=== PATIENT | female | born 1990 | race African-American/Black ===

== ENCOUNTER 2016-05-29 06:00 | Emergency (ER) | payer OTHER ==
--- NOTE | 2016-05-29 06:50 | REPUSA ---
CLINICAL HISTORY: Vaginal bleeding. TECHNIQUE: Transabdominal ultrasound of the pelvis was performed. FINDINGS: Single, live intrauterine gestation. [place]-rump length measures 7.2 cm. This corresponds to an estimated gestation age of 13 weeks and 3 d ays. heart rate 157 beats per minutes. Estimated gestational age is 13 weeks and 3 days. heart rate 157 beats per minute. motion was observed. No subchorionic hemorrhage is visualized. Anterior placenta. No evidence of placental previa. Unremarkable maternal adnexal lesions. Estimated delivery date on 12/01/2016. Calcified posterior uterine fibroid measuring 2.2 cm. IMPRESSION: Single, live intrauterine gestation. Posterior fibroid.
[2016-05-29 07:10] LABS: MEAN CORPUSCULAR HEMOGLOBIN 28.7 pg (27.0-33.0); MEAN CORPUSCULAR HGB CONC 32.7 g/dl (32.0-36.5); MEAN CORPUSCULAR VOLUME 87.8 fl (80.0-96.0); WHITE BLOOD COUNT 6.2 K/mm3 (4.0-10.0)
--- NOTE | 2016-05-29 07:57 | EDDOCDS ---
Physician Documentation [facility] Name: Melissa Registre Age: 26 yrs Sex: Female : 1990 Arrival Date: 05/29/2016 Time: 06:00 Bed 9 Private MD: Disposition: 05/29/16 07:39 Discharged to Home/Self Care. Impression: Threatened . - Condition is Stable. - Discharge Instructions: Pelvic Rest, Threatened Miscarriage. - Medication Reconciliation, Local Pharmacy Hours form. - Follow up: [facility] [place]; When: 1 - 2 days; Reason: Recheck today's complaints. - Problem is new. - Symptoms are unchanged. Historical: - Allergies: No known drug Allergies; - Home Meds: 1. Vitamin Oral tab 1 tab once daily - PMHx: none; - PSHx: ; Oophorectomy - Left; - Social history: Smoking status: Patient states was never smoker of tobacco. No barriers to communication noted, The patient speaks fluent Arabic. - Family history: Not pertinent. - : The pt / caregiver states he / she is not on anticoagulants. Home medication list is obtained from the patient. - Exposure Risk Screening:: None identified. 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 2 in. (157.48 cm); Pain 5/10; 06:52 BP 103 / 58 Supine; Pulse 80; ko2 06:52 BP 96 / 56 Sitting; Pulse 77; ko2 06:52 BP 103 / 65 Standing; Pulse 76; ko2 07:12 BP 100 / 53; Pulse 74; Resp 13; Temp 98.5(O); Pulse Ox 99% on R/A; Pain 5/10; ja5 06:06 Body Mass Index 27.07 (67.13 kg, 157.48 cm) [facility] MDM: 06:15 Orthostatic VS ordered. cs11 06:16 Rh Only Ordered. EDMS 06:17 CBC Ordered. EDMS 06:17 Hcg, Serum Quantitative Ordered. EDMS 06:17 Ultrasound 1st Trimester Ordered. EDMS 06:47 Financial registration complete. pm4 06:55 [facility] Payment Agreement was scanned into [employer] and attached to record. pm4 07:39 CBC Reviewed. sd1 07:39 Rh Only Reviewed. sd1 07:39 Hcg, Serum Quantitative Reviewed. sd1 07:39 Ultrasound 1st Trimester Reviewed. sd1 Signatures: Dispatcher [employer] EDNV Blanca Gil MD MD sd1 Nima Nolasco, DO cs11 Lillian Payne,RN RN [facility] Philippe Bañuelos, Reg Reg pm4 Tracie Aceves RN RN ja5 The chart was reviewed and I authenticate all verbal orders and agree with the evaluation and treatment provided.Attachments: 06:55 [facility] Payment Agreement pm4 MTDD
--- NOTE | 2016-05-29 07:57 | EDDOCDS ---
Nurse's Notes [facility] Name: Melissa Registre Age: 26 yrs Sex: Female : 1990 Arrival Date: 05/29/2016 Time: 06:00 Bed 9 Private MD: Diagnosis: Threatened Presentation: 05/29 06:04 Presenting complaint: Patient states: pt states she woke up and there was blood in her mlc underwear. pt denies bleeding at this time. pt c/o abdominal pain. Risk factors: The patient reports no loss of conciousness prior to arrival. This patient has not had a hysterectomy. This patient has not begun menopause. Adult Sepsis Screening: The patient does not have new or worsening altered mentation. Patient's respiratory rate is less than 22. Systolic blood pressure is greater than 100. Patient has a qSOFA score of 0- Negative Sepsis Screen. Suicide/Homicide risk assessment- the patient denies having any suicidal and/or homicidal ideations and does not present with any other emotional, behavioral or mental health complaints. 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 Transition of care: patient was not received from another setting of care. 06:04 Acuity: SAAD Level 3 mlc 06:04 Method Of Arrival: Walkin/Carried/Asstd mlc Triage Assessment: 06:06 General: Appears in no apparent distress, comfortable, Behavior is cooperative. Pain: mlc Location: suprapubic area, right lower quadrant and left lower quadrant Pain currently is 5 out of 10 on a pain scale. Pt Declines HIV testing. The patient is triaged at the bedside. See Assessment in Nurses Notes section of ED record. Neurological: Level of Consciousness is awake, alert, Oriented to person, place, time. Respiratory: Airway is patent Respiratory effort is even, unlabored, Respiratory pattern is regular. : Reports vaginal bleeding that is none at this time. 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 Vitamin Oral tab 1 tab once daily - PMHx: none; - PSHx: ; Oophorectomy - Left; - Social history: Smoking status: Patient states was never smoker of tobacco. No barriers to communication noted, The patient speaks fluent Latvian. - Family history: Not pertinent. - : The pt / caregiver states he / she is not on anticoagulants. Home medication list is obtained from the patient. - Exposure Risk Screening:: None identified. Screenin:11 Screening information is obtained from the patient. Fall risk: No risks identified. mlc Assistance ADL's: requires no assistance with activities of daily living. Abuse/DV Screen: The patient / caregiver reports he/she is: not in a situation that causes fear, pain or injury. Nutritional screening: No deficits noted. Advance Directives: Currently, there is no health care proxy. There is an active Power of Cafeteria Counter Attendant. home support is adequate. Assessment: 06:15 General: Appears in no apparent distress, Behavior is appropriate for age, cooperative. ko2 Pain: Location: abdomen Pain currently is 5 out of 10 on a pain scale. Neurological: Level of Consciousness is awake, alert. Respiratory: Airway is patent Respiratory effort is even, unlabored. GI: Abdomen is non- distended Bowel sounds present X 4 quads. Derm: Skin is normal. 07:13 General: Appears in no apparent distress, Behavior is appropriate for age, cooperative. ja5 Pain: Location: right lower quadrant and left lower quadrant Pain currently is 5 out of 10 on a pain scale. Neurological: Level of Consciousness is awake, alert, Oriented to person, place, time. Cardiovascular: Heart tones S1 S2 present. Respiratory: Airway is patent Respiratory effort is even, unlabored. GI: Abdomen is flat, non- distended Bowel sounds present X 4 quads. Derm: Skin is pink, warm & dry. Vital Signs: 06:06 BP 108 / 61; Pulse 75; Resp 16; Temp 96.6; Pulse Ox 100% ; Weight 67.13 kg; Height 5 mlc ft. 2 in. (157.48 cm); Pain 5/10; 06:52 BP 103 / 58 Supine; Pulse 80; ko2 06:52 BP 96 / 56 Sitting; Pulse 77; ko2 06:52 BP 103 / 65 Standing; Pulse 76; ko2 07:12 BP 100 / 53; Pulse 74; Resp 13; Temp 98.5(O); Pulse Ox 99% on R/A; Pain 5/10; ja5 06:06 Body Mass Index 27.07 (67.13 kg, 157.48 cm) [facility] Vitals: 06:06 Log In Time: May 29, 2016 at 06:02. [facility] ED Course: 06:02 Patient visited by Jody Thacker Reg. hs2 06:02 Patient moved to Waiting hs2 06:06 Triage Initiated mlc 06:12 Patient visited by Lillian Payne RN. mlc 06:13 Christie Toledo,QUOC is Primary Nurse. mlc 06:13 Patient moved to 9 [facility] 06:14 Nima Nolasco DO is Attending Physician. cs11 06:14 Patient visited by Nima Nolasco DO. cs11 06:41 CBC Sent. nn1 06:41 Rh Only Sent. nn1 06:41 Hcg, Serum Quantitative Sent. nn1 06:41 Inserted saline lock: 20 gauge in left antecubital area and blood collected. The nn1 patient tolerated the procedure well. 06:52 Patient visited by Christie Toledo RN. ko2 06:55 Patient name changed from Melissa\S\\S\Registre\S\ to Melissa\S\ \S\Registre. EDMS 06:55 [facility] Payment Agreement was scanned into [employer] and attached to record. pm4 06:57 Attending Physician role handed off by Nima Nolasco DO sd1 06:57 Blanca Gil MD is Attending Physician. sd1 07:07 Maryjo Parks, QUOC is Primary Nurse. jc4 07:09 Tracie Aceves,QUOC is Primary Nurse. ja5 07:15 Ultrasound 1st Trimester Returned. EDMS 07:16 Patient visited by Tracie Aceves RN. ja5 07:18 Primary Nurse role handed off by Christie Toledo RN kr3 07:39 [place], OB is Referral Physician. sd1 07:50 The patient / caregiver is instructed regarding the plan of care and ED course. ja5 07:53 No procedures done that require assistance. ja5 07:55 Discontinued IV lock intact, bleeding controlled, pressure dressing applied, No ja5 redness/swelling at site. Order Results: Lab Order: CBC; SPEC'M 05/29/16 06:40 Test: WHITE BLOOD COUNT; Value: 6.2; Range: 4.0-10.0; Units: K/mm3; Status: F Test: RED BLOOD COUNT; Value: 3.88; Range: 4.00-5.40; Abnormal: Below low normal; Units: M/mm3; Status: F Test: HEMOGLOBIN; Value: 11.1; Range: 12.0-16.0; Abnormal: Below low normal; Units: g/dl; Status: F Test: HEMATOCRIT; Value: 34.0; Range: 36.0-47.0; Abnormal: Below low normal; Units: %; Status: F Test: MEAN CORPUSCULAR VOLUME; Value: 87.8; Range: 80.0-96.0; Units: fl; Status: F Test: MEAN CORPUSCULAR HEMOGLOBIN; Value: 28.7; Range: 27.0-33.0; Units: pg; Status: F Test: MEAN CORPUSCULAR HGB CONC; Value: 32.7; Range: 32.0-36.5; Units: g/dl; Status: F Test: RED CELL DISTRIBUTION WIDTH; Value: 14.0; Range: 11.5-14.5; Units: %; Status: F Test: PLATELET COUNT, AUTOMATED; Value: 229; Range: 150-450; Units: k/mm3; Status: F Lab Order: Rh Only; [facility] 05/29/16 06:40 Test: RH; Value: POSITIVE; Status: F Lab Order: Hcg, Serum Quantitative; [facility] 05/29/16 06:40 Test: HCG, SERUM QUANTITATIVE; Value: 21125; Units: MIU/ML; Status: F Test Note: ; GESTATIONAL AGE APPROXIMATE HCG RANGE (MIU/ML) 0.2-1 WEEK 5-50 1-2 WEEKS 50-500 2-3 WEEKS 100-5,000 3-4 WEEKS 500-10,000 4-5 WEEKS 1,000-50,000 5-6 WEEKS 10,000-100,000 6-8 WEEKS 15,000-200,000 2-3 MONTHS 10,000-100,000 NON FEMALES LESS THAN 3.0 Patient samples may contain human heterophilic antibodies that could react with immunoassays to give falsely elevated or depressed results. This assay has been designed to minimize interference from heterophilic antibodies. Elevated hCG levels have also been associated with trophoblastic disease and nontrophoblastic neoplasms. The possibility of having these diseases should be considered before a diagnosis of is made. This test is not intended for use as a surrogate marker for aiding in the diagnosis or monitoring the treatment of cancer patients. [employer] FERTILE [employer]AR[employer]S methodology. Radiology Order: Ultrasound 1st Trimester Test: Ultrasound 1st Trimester REASON FOR EXAMINATION: Bleeding; ; CLINICAL HISTORY: Vaginal bleeding.; TECHNIQUE: Transabdominal ultrasound of the pelvis was performed.; FINDINGS:; Single, live intrauterine gestation.; [place]-rump length measures 7.2 cm. This corresponds to an estimated gestation age of 13 weeks and 3 d; ays.; heart rate 157 beats per minutes.; Estimated gestational age is 13 weeks and 3 days.; heart rate 157 beats per minute.; motion was observed.; No subchorionic hemorrhage is visualized.; Anterior placenta.; No evidence of placental previa.; Unremarkable maternal adnexal lesions.; Estimated delivery date on 12/01/2016.; Calcified posterior uterine fibroid measuring 2.2 cm.; IMPRESSION:; Single, live intrauterine gestation.; Posterior fibroid.; ; Outcome: 07:39 Discharge ordered by Provider. sd1 07:54 Discharge Assessment: Patient awake, alert and oriented x 3. No cognitive and/or ja5 functional deficits noted. Patient verbalized understanding of disposition instructions. patient administered narcotics - no. The following High Risk Discharge criteria are identified: None. Discharged to home ambulatory. Condition: stable. Discharge instructions given to patient, Instructed on discharge instructions, follow up and referral plans. Demonstrated understanding of instructions, Pt was receptive of discharge instructions/ teaching. Ultrasound Study completed. Property :Personal belongings accompany Pt. 07:56 Patient left the ED. ja5 Signatures: Dispatcher [employer] EDMS Blanca Gil MD MD sd1 Madelyn Glass,RN RN reed3 Maryjo Parks, RN RN nestor4 Nima Nolasco, DO cs11 Lillian Payne RN RN mlc Christie Toledo RN RN ko2 Eleni Woo RN RN nn1 Jody Thacker, Reg Reg hs2 Philippe Bañuelos, Reg Reg pm4 Ketan,Tracie,RN RN ja5 MTDD
--- NOTE | 2016-05-31 08:57 | EDDOCDS ---
Physician Documentation [facility] Name: Melissa Registre Age: 26 yrs Sex: Female : 1990 Arrival Date: 05/29/2016 Time: 06:00 Bed 9 Private MD: Disposition: 05/29/16 07:39 Discharged to Home/Self Care. Impression: Threatened . - Condition is Stable. - Discharge Instructions: Pelvic Rest, Threatened Miscarriage. - Medication Reconciliation, Local Pharmacy Hours form. - Follow up: [facility] [place]; When: 1 - 2 days; Reason: Recheck today's complaints. - Problem is new. - Symptoms are unchanged. Historical: - Allergies: No known drug Allergies; - Home Meds: 1. Vitamin Oral tab 1 tab once daily - PMHx: none; - PSHx: ; Oophorectomy - Left; - Social history: Smoking status: Patient states was never smoker of tobacco. No barriers to communication noted, The patient speaks fluent Greek. - Family history: Not pertinent. - : The pt / caregiver states he / she is not on anticoagulants. Home medication list is obtained from the patient. - Exposure Risk Screening:: None identified. 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 2 in. (157.48 cm); Pain 5/10; 06:52 BP 103 / 58 Supine; Pulse 80; ko2 06:52 BP 96 / 56 Sitting; Pulse 77; ko2 06:52 BP 103 / 65 Standing; Pulse 76; ko2 07:12 BP 100 / 53; Pulse 74; Resp 13; Temp 98.5(O); Pulse Ox 99% on R/A; Pain 5/10; ja5 06:06 Body Mass Index 27.07 (67.13 kg, 157.48 cm) [facility] [place] [place] MDM: 06:15 Orthostatic VS ordered. cs11 06:16 Rh Only Ordered. EDMS 06:17 CBC Ordered. EDMS 06:17 Hcg, Serum Quantitative Ordered. EDMS 06:17 Ultrasound 1st Trimester Ordered. EDMS 06:47 Financial registration complete. pm4 06:55 [facility] Payment Agreement was scanned into [employer] and attached to record. pm4 07:39 CBC Reviewed. sd1 07:39 Rh Only Reviewed. sd1 07:39 Hcg, Serum Quantitative Reviewed. sd1 07:39 Ultrasound 1st Trimester Reviewed. sd1 13:32 T-Sheet-- Draft Copy was scanned into [employer] and attached to record. gb 13:32 Radiology Report was scanned into [employer] and attached to record. gb Signatures: Dispatcher [employer] EDNJ Blanca Gil MD MD sd1 Poonam Murray, Reg Reg gb Nima Nolasco, DO DO cs11 Lillian Payne,RN RN [facility] [place] Philippe Bañuelos, Reg Reg pm4 Tracie Aceves RN RN sharifa5 The chart was reviewed and I authenticate all verbal orders and agree with the evaluation and treatment provided.Attachments: 06:55 [facility] Payment Agreement pm4 13:32 T-Sheet-- Draft Copy gb Chart Complete MTDD
--- NOTE | 2016-05-31 08:57 | EDDOCDS ---
Nurse's Notes [facility] Name: Melissa Registre Age: 26 yrs Sex: Female : 1990 Arrival Date: 05/29/2016 Time: 06:00 Bed 9 Private MD: Diagnosis: Threatened Presentation: 05/29 06:04 Presenting complaint: Patient states: pt states she woke up and there was blood in her mlc underwear. pt denies bleeding at this time. pt c/o abdominal pain. Risk factors: The patient reports no loss of conciousness prior to arrival. This patient has not had a hysterectomy. This patient has not begun menopause. Adult Sepsis Screening: The patient does not have new or worsening altered mentation. Patient's respiratory rate is less than 22. Systolic blood pressure is greater than 100. Patient has a qSOFA score of 0- Negative Sepsis Screen. Suicide/Homicide risk assessment- the patient denies having any suicidal and/or homicidal ideations and does not present with any other emotional, behavioral or mental health complaints. 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 Transition of care: patient was not received from another setting of care. 06:04 Acuity: SAAD Level 3 mlc 06:04 Method Of Arrival: Walkin/Carried/Asstd mlc Triage Assessment: 06:06 General: Appears in no apparent distress, comfortable, Behavior is cooperative. Pain: mlc Location: suprapubic area, right lower quadrant and left lower quadrant Pain currently is 5 out of 10 on a pain scale. Pt Declines HIV testing. The patient is triaged at the bedside. See Assessment in Nurses Notes section of ED record. Neurological: Level of Consciousness is awake, alert, Oriented to person, place, time. Respiratory: Airway is patent Respiratory effort is even, unlabored, Respiratory pattern is regular. : Reports vaginal bleeding that is none at this time. 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 Vitamin Oral tab 1 tab once daily - PMHx: none; - PSHx: ; Oophorectomy - Left; - Social history: Smoking status: Patient states was never smoker of tobacco. No barriers to communication noted, The patient speaks fluent Divehi. - Family history: Not pertinent. - : The pt / caregiver states he / she is not on anticoagulants. Home medication list is obtained from the patient. - Exposure Risk Screening:: None identified. Screenin:11 Screening information is obtained from the patient. Fall risk: No risks identified. mlc Assistance ADL's: requires no assistance with activities of daily living. Abuse/DV Screen: The patient / caregiver reports he/she is: not in a situation that causes fear, pain or injury. Nutritional screening: No deficits noted. Advance Directives: Currently, there is no health care proxy. 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 home support is adequate. Assessment: 06:15 General: Appears in no apparent distress, Behavior is appropriate for age, cooperative. ko2 Pain: Location: abdomen Pain currently is 5 out of 10 on a pain scale. Neurological: Level of Consciousness is awake, alert. Respiratory: Airway is patent Respiratory effort is even, unlabored. GI: Abdomen is non- distended Bowel sounds present X 4 quads. Derm: Skin is normal. 07:13 General: Appears in no apparent distress, Behavior is appropriate for age, cooperative. ja5 Pain: Location: right lower quadrant and left lower quadrant Pain currently is 5 out of 10 on a pain scale. Neurological: Level of Consciousness is awake, alert, Oriented to person, place, time. Cardiovascular: Heart tones S1 S2 present. Respiratory: Airway is patent Respiratory effort is even, unlabored. GI: Abdomen is flat, non- distended Bowel sounds present X 4 quads. Derm: Skin is pink, warm & dry. Vital Signs: 06:06 BP 108 / 61; Pulse 75; Resp 16; Temp 96.6; Pulse Ox 100% ; Weight 67.13 kg; Height 5 mlc ft. 2 in. (157.48 cm); Pain 5/10; 06:52 BP 103 / 58 Supine; Pulse 80; ko2 06:52 BP 96 / 56 Sitting; Pulse 77; ko2 06:52 BP 103 / 65 Standing; Pulse 76; ko2 07:12 BP 100 / 53; Pulse 74; Resp 13; Temp 98.5(O); Pulse Ox 99% on R/A; Pain 5/10; ja5 06:06 Body Mass Index 27.07 (67.13 kg, 157.48 cm) [facility] [place] Vitals: 06:06 Log In Time: May 29, 2016 at 06:02. [facility] [place] ED Course: 06:02 Patient visited by Jody Thacker Reg. hs2 06:02 Patient moved to Waiting hs2 06:06 Triage Initiated mlc 06:12 Patient visited by Lillian Payne RN. mlc 06:13 Christie Toledo,QUOC is Primary Nurse. mlc 06:13 Patient moved to 9 [facility] [place] 06:14 Nima oNlasco DO is Attending Physician. cs11 06:14 Patient visited by Nima Nolasco DO. cs11 06:41 CBC Sent. nn1 06:41 Rh Only Sent. nn1 06:41 Hcg, Serum Quantitative Sent. nn1 06:41 Inserted saline lock: 20 gauge in left antecubital area and blood collected. The nn1 patient tolerated the procedure well. 06:52 Patient visited by Christie Toledo RN. ko2 06:55 Patient name changed from Melissa\S\\S\Registre\S\ to Melissa\S\ \S\Registre. EDMS 06:55 [facility] [place] was scanned into [employer] and attached to record. pm4 06:57 Attending Physician role handed off by Nima Nolasco DO sd1 06:57 Blanca Gil MD is Attending Physician. sd1 07:07 Maryjo Parks, RN is Primary Nurse. jc4 07:09 Tracie Aceves,QUOC is Primary Nurse. ja5 07:15 Ultrasound 1st Trimester Returned. EDMS 07:16 Patient visited by Tracie Aceves RN. ja5 07:18 Primary Nurse role handed off by Christie Toledo RN kr3 07:39 [place], OB is Referral Physician. sd1 07:50 The patient / caregiver is instructed regarding the plan of care and ED course. ja5 07:53 No procedures done that require assistance. ja5 07:55 Discontinued IV lock intact, bleeding controlled, pressure dressing applied, No ja5 redness/swelling at site. 13:32 T-Sheet-- Draft Copy was scanned into [employer] and attached to record. gb 13:32 Radiology Report was scanned into [employer] and attached to record. gb Order Results: Lab Order: CBC; SPEC'M 05/29/16 06:40 Test: WHITE BLOOD COUNT; Value: 6.2; Range: 4.0-10.0; Units: K/mm3; Status: F Test: RED BLOOD COUNT; Value: 3.88; Range: 4.00-5.40; Abnormal: Below low normal; Units: M/mm3; Status: F Test: HEMOGLOBIN; Value: 11.1; Range: 12.0-16.0; Abnormal: Below low normal; Units: g/dl; Status: F Test: HEMATOCRIT; Value: 34.0; Range: 36.0-47.0; Abnormal: Below low normal; Units: %; Status: F Test: MEAN CORPUSCULAR VOLUME; Value: 87.8; Range: 80.0-96.0; Units: fl; Status: F Test: MEAN CORPUSCULAR HEMOGLOBIN; Value: 28.7; Range: 27.0-33.0; Units: pg; Status: F Test: MEAN CORPUSCULAR HGB CONC; Value: 32.7; Range: 32.0-36.5; Units: g/dl; Status: F Test: RED CELL DISTRIBUTION WIDTH; Value: 14.0; Range: 11.5-14.5; Units: %; Status: F Test: PLATELET COUNT, AUTOMATED; Value: 229; Range: 150-450; Units: k/mm3; Status: F Lab Order: Rh Only; SPEC'M 05/29/16 06:40 Test: RH; Value: POSITIVE; Status: F Lab Order: Hcg, Serum Quantitative; SPEC' 05/29/16 06:40 Test: HCG, SERUM QUANTITATIVE; Value: 15241; Units: MIU/ML; Status: F Test Note: ; GESTATIONAL AGE APPROXIMATE HCG RANGE (MIU/ML) 0.2-1 WEEK 5-50 1-2 WEEKS 50-500 2-3 WEEKS 100-5,000 3-4 WEEKS 500-10,000 4-5 WEEKS 1,000-50,000 5-6 WEEKS 10,000-100,000 6-8 WEEKS 15,000-200,000 2-3 MONTHS 10,000-100,000 NON FEMALES LESS THAN 3.0 Patient samples may contain human heterophilic antibodies that could react with immunoassays to give falsely elevated or depressed results. This assay has been designed to minimize interference from heterophilic antibodies. Elevated hCG levels have also been associated with trophoblastic disease and nontrophoblastic neoplasms. The possibility of having these diseases should be considered before a diagnosis of is made. This test is not intended for use as a surrogate marker for aiding in the diagnosis or monitoring the treatment of cancer patients. [employer] methodology. Radiology Order: Ultrasound 1st Trimester Test: Ultrasound 1st Trimester REASON FOR EXAMINATION: Bleeding; ; CLINICAL HISTORY: Vaginal bleeding.; TECHNIQUE: Transabdominal ultrasound of the pelvis was performed.; FINDINGS:; Single, live intrauterine gestation.; [place]-rump length measures 7.2 cm. This corresponds to an estimated gestation age of 13 weeks and 3 d; ays.; heart rate 157 beats per minutes.; Estimated gestational age is 13 weeks and 3 days.; heart rate 157 beats per minute.; motion was observed.; No subchorionic hemorrhage is visualized.; Anterior placenta.; No evidence of placental previa.; Unremarkable maternal adnexal lesions.; Estimated delivery date on 12/01/2016.; Calcified posterior uterine fibroid measuring 2.2 cm.; IMPRESSION:; Single, live intrauterine gestation.; Posterior fibroid.; ; Outcome: 07:39 Discharge ordered by Provider. sd1 07:54 Discharge Assessment: Patient awake, alert and oriented x 3. No cognitive and/or ja5 functional deficits noted. Patient verbalized understanding of disposition instructions. patient administered narcotics - no. The following High Risk Discharge criteria are identified: None. Discharged to home ambulatory. Condition: stable. Discharge instructions given to patient, Instructed on discharge instructions, follow up and referral plans. Demonstrated understanding of instructions, Pt was receptive of discharge instructions/ teaching. Ultrasound Study completed. Property :Personal belongings accompany Pt. 07:56 Patient left the ED. ja5 Signatures: Dispatcher [employer] Blanca Sarkar MD MD sd1 Poonam Murray, John Reg Madelyn Howell,RN RN kr3 Maryjo Parks RN RN jc4 Nima Nolasco DO DO cs11 Lillian Panye RN RN [facility] [place] Christie Toledo,RN RN ko2 Eleni Woo,RN RN nn1 Jody Thacker, Reg Reg hs2 Philippe Bañuelos, Reg Reg pm4 Tracie Aceves,RN RN ja5 Chart Complete MTDD
--- NOTE | 2016-05-31 08:58 | EDDOCDS ---
Physician Documentation [facility] Name: Melissa Registre Age: 26 yrs Sex: Female : 1990 Arrival Date: 05/29/2016 Time: 06:00 Bed 9 Private MD: Disposition: 05/29/16 07:39 Discharged to Home/Self Care. Impression: Threatened . - Condition is Stable. - Discharge Instructions: Pelvic Rest, Threatened Miscarriage. - Medication Reconciliation, Local Pharmacy Hours form. - Follow up: [facility]; When: 1 - 2 days; Reason: Recheck today's complaints. - Problem is new. - Symptoms are unchanged. Historical: - Allergies: No known drug Allergies; - Home Meds: 1. Vitamin Oral tab 1 tab once daily - PMHx: none; - PSHx: ; Oophorectomy - Left; - Social history: Smoking status: Patient states was never smoker of tobacco. No barriers to communication noted, The patient speaks fluent Hebrew. - Family history: Not pertinent. - : The pt / caregiver states he / she is not on anticoagulants. Home medication list is obtained from the patient. - Exposure Risk Screening:: None identified. 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 2 in. (157.48 cm); Pain 5/10; 06:52 BP 103 / 58 Supine; Pulse 80; ko2 06:52 BP 96 / 56 Sitting; Pulse 77; ko2 06:52 BP 103 / 65 Standing; Pulse 76; ko2 07:12 BP 100 / 53; Pulse 74; Resp 13; Temp 98.5(O); Pulse Ox 99% on R/A; Pain 5/10; ja5 06:06 Body Mass Index 27.07 (67.13 kg, 157.48 cm) [facility] [place] MDM: 06:15 Orthostatic VS ordered. cs11 06:16 Rh Only Ordered. EDMS 06:17 CBC Ordered. EDMS 06:17 Hcg, Serum Quantitative Ordered. EDMS 06:17 Ultrasound 1st Trimester Ordered. EDMS 06:47 Financial registration complete. pm4 06:55 [facility] Payment Agreement was scanned into [employer] and attached to record. pm4 07:39 CBC Reviewed. sd1 07:39 Rh Only Reviewed. sd1 07:39 Hcg, Serum Quantitative Reviewed. sd1 07:39 Ultrasound 1st Trimester Reviewed. sd1 13:32 T-Sheet-- Draft Copy was scanned into [employer] and attached to record. gb 13:32 Radiology Report was scanned into [employer] and attached to record. gb Signatures: Dispatcher [employer] EDGA Blanca Gil MD MD sd1 Poonam Murray, Reg Reg gb Nima Nolasco, DO DO cs11 Lillian Payne,RN RN [facility] [place] Philippe Bañuelos, Reg Reg pm4 Tracie Aceves RN RN [email or web address] The chart was reviewed and I authenticate all verbal orders and agree with the evaluation and treatment provided.Attachments: 06:55 [facility] Payment Agreement pm4 13:32 T-Sheet-- Draft Copy gb Chart Complete MTDD
== END 2016-05-29 07:56 | disposition home or self-care (01) ==
LOC: M ED 06:00
DX: O26.851 Spotting complicating pregnancy, first trimester (principal); O20.0 Threatened abortion; Z3A.12 12 weeks gestation of pregnancy; Z79.899 Other long term (current) drug therapy

== ENCOUNTER 2016-08-31 11:43 | Emergency (ER) | payer OTHER ==
[~2016-08-31] VITALS: Ht 157.5 cm; Wt 65.8 kg
[2016-08-31] MEDS ORDERED: NAPR1TAB86 PO (12:04)
[2016-08-31 12:25] LABS: MEAN CORPUSCULAR HEMOGLOBIN 28.3 pg (27.0-33.0); MEAN CORPUSCULAR HGB CONC 31.1 g/dl (32.0-36.5); RED CELL DISTRIBUTION WIDTH 12.5 % (11.5-14.5); WHITE BLOOD COUNT 4.8 K/mm3 (4.0-10.0)
[2016-08-31 12:44] LABS: CONTROL LINE HCG INT CTR LINE PRESENT
[2016-08-31 12:54] LABS: METHADONE URINE NEGATIVE (NEGATIVE)
[2016-08-31 12:56] LABS: ALBUMIN 3.3 GM/DL (3.2-5.2); ALBUMIN/GLOBULIN RATIO 0.87 (1.00-1.93); ALKALINE PHOSPHATASE 38 U/L (45-117); ALT/SGPT 14 U/L (12-78); ANION GAP 6 MEQ/L (8-16); AST/SGOT 14 U/L (15-37); BILIRUBIN,DIRECT 0.1 MG/DL (0.0-0.2); BILIRUBIN,TOTAL 0.4 MG/DL (0.2-1.0); BLOOD UREA NITROGEN 11 MG/DL (7-18); CALCIUM LEVEL 8.2 MG/DL (8.5-10.1); CARBON DIOXIDE LEVEL 26 MEQ/L (21-32); CHLORIDE LEVEL 107 MEQ/L (98-107); CREATININE FOR GFR 0.61 MG/DL (0.55-1.02); GLOMERULAR FILTRATION RATE > 60.0 (>60); GLUCOSE, FASTING 85 MG/DL (70-105); SODIUM LEVEL 139 MEQ/L (136-145); TOTAL PROTEIN 7.1 GM/DL (6.4-8.2)
[2016-08-31 17:40] VITALS: BP 107/68
== END 2016-08-31 17:57 | disposition home or self-care (01) ==
LOC: M ED 12:03
DX: F43.0 Acute stress reaction (principal); Z79.3 Long term (current) use of hormonal contraceptives
CPT/HCPCS: 80048; 80076; 80306; 84443; 84703; 85027; 99284; G0480

== ENCOUNTER 2016-10-29 14:58 | Emergency (ER) | payer OTHER ==
[~2016-10-29] VITALS: Ht 157.5 cm; Wt 70.2 kg
[~2016-10-29 14:58] MED LIST: NAPR1TAB86 PO
[2016-10-29] MEDS ORDERED: RIFA30CA PO (15:15)
[2016-10-29] MEDS ORDERED: IBUPROFEN 600 MG TAB As Ordered ONE (16:05)
[2016-10-29] MEDS ORDERED: IBUPROFEN 600 MG TAB PO ONE (16:15)
--- NOTE | 2016-10-29 16:38 | REP ---
Clinical: Trauma. Technique: AP, lateral, bilateral oblique and sunrise views left knee . Findings: The osseous structures and joint spaces are intact and normal. There is no evidence for acute fracture or dislocation. No joint effusion is appreciated. Surrounding soft tissues are unremarkable. No subcutaneous emphysema or radiodense foreign body. Impression: No acute fracture or dislocation. Signed by Shalom Stanton MD 10/29/2016 04:29 P
--- NOTE | 2016-10-29 16:41 | REP ---
Clinical: Thoracic pain. Trauma. Technique: AP, lateral, and swimmers views. Findings: Alignment and kyphosis is maintained. Vertebral bodies intact. No acute fracture / compression injury or subluxation. No degenerative changes. Paravertebral soft tissues are normal. Impression: Normal thoracic spine series. Signed by Shalom Stanton MD 10/29/2016 04:32 P
--- NOTE | 2016-10-29 16:42 | REP ---
Clinical: Trauma. Pain. Technique: AP, lateral, bilateral oblique, and coned-down views. Findings: Alignment and lordosis is maintained. The vertebral bodies including transverse process and spinous processes are intact and normal. There is no evidence for acute fracture / compression injury or subluxation. No evidence for spondylolysis or spondylolisthesis. No significant degenerative change is noted. Impression: Normal lumbosacral spine radiograph series. Signed by Shalom Stanton MD 10/29/2016 04:33 P
[2016-10-29] MEDS ORDERED: ROBA500T PO (16:47)
[2016-10-29] MEDS ORDERED: IBUP80TA PO (16:47)
[2016-10-29 16:55] VITALS: BP 104/62
== END 2016-10-29 17:02 | disposition home or self-care (01) ==
LOC: M ED 16:32
DX: S23.3XXA Sprain of ligaments of thoracic spine, initial encounter (principal); S33.5XXA Sprain of ligaments of lumbar spine, initial encounter; S83.92XA Sprain of unspecified site of left knee, initial encounter; X58.XXXA Exposure to other specified factors, initial encounter; Y92.019 Unspecified place in single-family (private) house as the place of occurrence of the external cause; Y93.9 Activity, unspecified; Y99.8 Other external cause status; R76.11 Nonspecific reaction to tuberculin skin test without active tuberculosis; Z79.899 Other long term (current) drug therapy; Z90.79 Acquired absence of other genital organ(s)

== ENCOUNTER 2018-04-27 20:57 | Emergency (ER) | payer OTHER ==
[~2018-04-27] VITALS: Ht 162.6 cm; Wt 69.1 kg
[~2018-04-27 20:57] MED LIST changes: +IBUP80TA PO; +RIFA30CA PO; +ROBA500T PO
[2018-04-27] MEDS ORDERED: PRE NATAL (21:24)
[2018-04-27] MEDS ORDERED: NS 1,000 ML IV ONE (21:45)
[2018-04-27] MEDS ORDERED: ONDANSETRON 4MG/2ML VIAL (J2405) IV ONE (21:45)
[2018-04-27] MEDS ORDERED: ACETAMINOPHEN TAB 650MG DOSE (2X325MG) PO ONE (21:45)
[2018-04-27 22:00] LABS: APPEARANCE, URINE CLEAR (CLEAR); BACTERIA, URINE AUTO NEGATIVE (NEGATIVE); BILIRUBIN, URINE AUTO NEGATIVE (NEGATIVE); BLOOD, URINE BLOOD NEGATIVE (NEGATIVE); COLOR, URINE YELLOW (YELLOW); GLUCOSE, URINE (UA) AUTO NEGATIVE (NEGATIVE); KETONE, URINE AUTO NEGATIVE (NEGATIVE); LEUKOCYTE ESTERASE, URINE AUTO NEGATIVE (NEGATIVE); MUCUS, URINE SMALL (NEGATIVE); NITRITE, URINE AUTO NEGATIVE (NEGATIVE); PROTEIN, URINE AUTO NEGATIVE (NEGATIVE); RBC, URINE AUTO 1 /HPF (0-3); SPECIFIC GRAVITY URINE AUTO 1.015 (1.002-1.035); SQUAMOUS EPITHELIAL CELL UR AU 0 /HPF (0-6); UROBILINOGEN, URINE AUTO 0.2 mg/dL (0.0-2.0); WBC, URINE AUTO 0 /HPF (0-3)
[2018-04-27 22:11] LABS: BASO % 0.5 % (0.0-1.0); EOS # 0.1 10^3/uL (0.0-0.50); EOS % 0.6 % (0.0-3.0); HEMATOCRIT 37.8 % (36.0-47.0); HEMOGLOBIN 12.3 g/dl (12.0-15.5); LYMPH # 3.4 10^3/uL (1.5-6.5); MEAN CORPUSCULAR HEMOGLOBIN 27.8 pg (27.0-33.0); MEAN CORPUSCULAR HGB CONC 32.5 g/dl (32.0-36.5); MEAN CORPUSCULAR VOLUME 85.3 fl (80.0-96.0); MONO # 0.5 10^3/uL (0.0-0.8); MONO % 6.3 % (0.0-5.0); NEUTROPHILS # 4.2 10^3/uL (1.8-7.7); NEUTROPHILS % 51.4 % (36.0-66.0); PLATELET COUNT, AUTOMATED 256 10^3/uL (150-450); RED BLOOD COUNT 4.43 10^6/uL (4.00-5.40); WHITE BLOOD COUNT 8.2 10^3/uL (4.0-10.0)
[2018-04-27 23:21] LABS: ALBUMIN 3.6 GM/DL (3.2-5.2); ALT/SGPT 15 U/L (12-78); BILIRUBIN,TOTAL 0.4 MG/DL (0.2-1.0); BLOOD UREA NITROGEN 8 MG/DL (7-18); CALCIUM LEVEL 8.5 MG/DL (8.5-10.1); CARBON DIOXIDE LEVEL 24 MEQ/L (21-32); CHLORIDE LEVEL 103 MEQ/L (98-107); CREATININE FOR GFR 0.59 MG/DL (0.55-1.30); GLOMERULAR FILTRATION RATE > 60.0 (>60); GLUCOSE, FASTING 85 MG/DL (70-100); HCG, SERUM QUANTITATIVE 49286 MIU/ML; LIPASE 146 U/L (73-393); POTASSIUM SERUM 3.7 MEQ/L (3.5-5.1); SODIUM LEVEL 135 MEQ/L (136-145); TOTAL PROTEIN 7.8 GM/DL (6.4-8.2)
[2018-04-28] MEDS ORDERED: ZOFR4TAB14 PO (01:28)
[2018-04-28 01:30] VITALS: BP 115/59
--- NOTE | 2018-04-28 01:58 | REPVR ---
EXAM: US Abdomen Limited, Right Upper Quadrant EXAM DATE/TIME: 04/27/2018 12:11 AM CLINICAL HISTORY: 28 years old, female; Pain; Abdominal pain; Epigastric; ; Additional info: Epigastric pain, preg. TECHNIQUE: Real-time ultrasound of the abdomen with image documentation. Examination was focused on the right upper quadrant. COMPARISON: No relevant prior studies available. FINDINGS: Liver: Normal. No masses. Gallbladder: Normal. No gallstones. There is no gallbladder wall thickening. Common bile duct: Normal. No stones. No dilation. Pancreas: Visualized pancreas is unremarkable. Right kidney: Normal. No mass. No hydronephrosis. IMPRESSION: No acute findings. Electronically signed by: Luis A Gama On 04/28/2018 01:57:48 AM
--- NOTE | 2018-04-28 02:03 | REPVR ---
EXAM: US First Trimester, Transabdominal and US , Transvaginal EXAM DATE/TIME: 04/27/2018 12:11 AM CLINICAL HISTORY: 28 years old, female; Pain; Other: Epigastric pain; Gestational age or lmp: 5; ; Additional info: Epigastric pain, preg. TECHNIQUE: Real-time transabdominal obstetrical ultrasound of the maternal pelvis and a first trimester , less than 14 weeks 0 days, with image documentation. Transvaginal imaging was used for better evaluation of the fetus and adnexa. COMPARISON: US Abdomen 04/27/2018 11:40 PM FINDINGS: GESTATION: Gestation: Single viable intrauterine gestation. Heart rate: heart rate is 113 beats per minute. Placenta: Small subchorionic hemorrhage. Amniotic fluid: Amniotic and chorionic fluid are normal for gestational age. BIOMETRY: Estimated gestational age: Sonographically estimated gestational age of 6 weeks 3 days. [place]-Rump length: [place] rump length of the pole is 6 mm. Estimated due date: Estimated date of delivery is 12/18/2018. MATERNAL: Uterus: Uterus measures 9.6 x 7 x 8 cm. There is an calcified intramural fibroid in the lower uterine body. Cervix: Unremarkable. Right adnexa: Right ovary measures 3.7 x 1.8 x 2.5 cm. Small right ovarian corpus luteal cyst. Left adnexa: Left ovary is not visualized. Intraperitoneal: No intraperitoneal free fluid. IMPRESSION: Single viable intrauterine gestation 6 weeks 3 days of age. Small subchorionic hemorrhage. Calcified uterine fibroid. Electronically signed by: Luis A Gama On 04/28/2018 02:02:43 AM
== END 2018-04-28 01:40 | disposition home or self-care (01) ==
LOC: M ED 20:57
DX: O20.8 Other hemorrhage in early pregnancy (principal); Z3A.01 Less than 8 weeks gestation of pregnancy
CPT/HCPCS: 76705; 76801; 80053; 81001; 83690; 84702; 85025; 86850; 86900; 86901; 96361; 96374; 99284; J2405

== ENCOUNTER 2018-05-31 12:52 | Emergency (ER) | payer OTHER ==
[~2018-05-31] VITALS: Ht 162.6 cm; Wt 69.1 kg
[~2018-05-31 12:52] MED LIST changes: +PRE NATAL; +ZOFR4TAB14 PO
[2018-05-31] MEDS ORDERED: ONDANSETRON 4 MG ORAL DISINTEGRATING TAB (Q0162 PER 1MG) PO ONE (14:00)
[2018-05-31 14:05] LABS: BASO # 0.1 10^3/uL (0.0-0.2); BASO % 0.6 % (0.0-1.0); EOS # 0.1 10^3/uL (0.0-0.50); EOS % 0.6 % (0.0-3.0); HEMATOCRIT 37.8 % (36.0-47.0); HEMOGLOBIN 12.3 g/dl (12.0-15.5); LYMPH # 2.7 10^3/uL (1.5-6.5); LYMPH % 31.8 % (24.0-44.0); MEAN CORPUSCULAR HEMOGLOBIN 28.5 pg (27.0-33.0); MEAN CORPUSCULAR HGB CONC 32.5 g/dl (32.0-36.5); MEAN CORPUSCULAR VOLUME 87.5 fl (80.0-96.0); MONO # 0.6 10^3/uL (0.0-0.8); MONO % 6.9 % (0.0-5.0); NEUTROPHILS % 59.7 % (36.0-66.0); PLATELET COUNT, AUTOMATED 270 10^3/uL (150-450); RED BLOOD COUNT 4.32 10^6/uL (4.00-5.40); WHITE BLOOD COUNT 8.4 10^3/uL (4.0-10.0)
--- NOTE | 2018-05-31 14:42 | REP ---
FIRST TRIMESTER ULTRASOUND: Real-time sonographic evaluation of the gravid uterus performed utilizing transabdominal technique. There is a single living intrauterine gestation. The estimated gestational age is 11 weeks 5 days based on the crown-rump of 50 mm. heart rate 145 beats per minute. There is no subchorionic hemorrhage. Ovaries could not be visualized. There is a calcified fibroid posteriorly measuring 2.2 x 2.6 x 2.2 cm. Electronically Signed by Umair Lim MD 05/31/2018 03:07 P
[2018-05-31 14:57] LABS: BLOOD UREA NITROGEN 6 MG/DL (7-18); CALCIUM LEVEL 8.9 MG/DL (8.5-10.1); CARBON DIOXIDE LEVEL 23 MEQ/L (21-32); CHLORIDE LEVEL 103 MEQ/L (98-107); CREATININE FOR GFR 0.52 MG/DL (0.55-1.30); GLOMERULAR FILTRATION RATE > 60.0 (>60); GLUCOSE, FASTING 86 MG/DL (70-100); HCG, SERUM QUANTITATIVE 72055 MIU/ML; POTASSIUM SERUM 3.8 MEQ/L (3.5-5.1); SODIUM LEVEL 135 MEQ/L (136-145)
[2018-05-31 15:29] VITALS: BP 118/69
== END 2018-05-31 15:29 | disposition home or self-care (01) ==
LOC: M ED 12:52
DX: O99.89 Other specified diseases and conditions complicating pregnancy, childbirth and the puerperium (principal); R10.2 Pelvic and perineal pain; Z3A.10 10 weeks gestation of pregnancy
CPT/HCPCS: 76801; 80048; 81001; 84702; 85025; 86901; 99283; Q0162

== ENCOUNTER 2018-06-05 09:50 | Emergency (ER) | payer OTHER ==
[~2018-06-05] VITALS: Ht 162.6 cm; Wt 69.5 kg
--- NOTE | 2018-06-05 10:52 | REP ---
Clinical: Pain and vaginal bleeding for viability. Technique: Transabdominal first trimester obstetrical ultrasound with Doppler evaluation. Findings: Single live early intrauterine is appreciated. [place]-rump length of 6.7 cm corresponds to 13 weeks 0 days gestational age with estimated date of delivery 12/11/2018 . heart rate equals 175 beats per minute. No gross abnormalities are identified. Posterior calcified intramural fibroid measures 2.3 cm maximal diameter. Impression: Single live early intrauterine at 13 weeks 0 days gestational age. Complete anatomical assessment should be performed and 19-20 weeks. Electronically Signed by Shalom Stanton MD 06/05/2018 10:43 A
[2018-06-05] MEDS ORDERED: METOCLOPRAMIDE 10 MG TAB PO ONE (11:45)
[2018-06-05 12:09] VITALS: BP 114/59
== END 2018-06-05 12:10 | disposition home or self-care (01) ==
LOC: M ED 09:50
DX: O20.8 Other hemorrhage in early pregnancy (principal); Z3A.13 13 weeks gestation of pregnancy; Z79.899 Other long term (current) drug therapy

== ENCOUNTER 2018-06-09 08:01 | Emergency (ER) | payer OTHER ==
[~2018-06-09] VITALS: Ht 162.6 cm; Wt 69.5 kg
--- NOTE | 2018-06-09 09:53 | REP ---
Emergency obstetric sonography: History: Recurrent vaginal bleeding. Comparison study June 05, 2018 showed an intramural fibroid posteriorly demonstrating calcification. Findings: Scanning through the gravid uterus today demonstrates a viable single intrauterine gestation in a free-floating lie. heart rate is recorded at 168 beats per minute. motion is observed. There is evidence of a small subchorionic hemorrhage at the level of the internal cervical os measuring 2.2 x 2.2 x 2.3 cm. There is a small cyst in the maternal right ovary measuring 1.1 cm in greatest diameter. Calcified posterior fibroid is again seen measuring 2.3 x 2.2 x 2.2 cm. Posterior placenta is noted without evidence of previa. It is too early for complete anatomic scanning. No gross anomaly is seen. Biometry chart: BPD 2.2 cm 13 weeks 4 days Head circumference 8.3 cm 13 weeks 4 days Abdominal circumference 6.9 cm 13 weeks 4 days Femur length 0.8 cm 12 weeks 3 days HC/AC ratio normal 1.21 Cephalic index normal 0.71 Estimated weight 68 grams, 0 pounds 2 ounces, 81st percentile. Impression: Viable single intrauterine gestation at 13 weeks 2 days by today's composite criteria. Expected gestational age estimate based on earliest study 12 weeks 0 days; YAKELIN by prior sonography December 22, 2018. There is a 2.3 cm subchorionic hemorrhage at the internal cervical os. A calcified uterine myoma is seen 2.3 cm in diameter posteriorly. Electronically Signed by Marv Romero MD 06/09/2018 10:16 P
[2018-06-09 10:08] VITALS: BP 105/63
== END 2018-06-09 10:23 | disposition home or self-care (01) ==
LOC: M ED 08:01
DX: O20.0 Threatened abortion (principal); O34.11 Maternal care for benign tumor of corpus uteri, first trimester; O34.81 Maternal care for other abnormalities of pelvic organs, first trimester; Z3A.13 13 weeks gestation of pregnancy; Z79.899 Other long term (current) drug therapy

== ENCOUNTER 2018-11-14 10:43 | Outpatient (CLI) | payer OTHER ==
[~2018-11-14] VITALS: Ht 160 cm; Wt 82.2 kg
[2018-11-14 10:57] VITALS: BP 113/65
--- NOTE | 2018-11-14 12:13 | IPNPDOC ---
Text Note Date of Service The patient was seen on 11/14/18. NOTE Triage Note Melissa is a 28yo with SIUP at approx 35wk presenting with known upper back pain that she has had throughout that has been worsening recently. She notes that turning from side to side at night is really uncomfortable and sometimes contributes to a feeling of SOB. She denies taking tylenol, "does not like medications". Occasionally uses a heating pad. Was r eferred to physical therapy, but did not feel it would be helpful so did not go. No vaginal bleeding, LOF or regular ctx. No dysuria, no abnormal vaginal discharge. No fevers/chills. No nausea/vomiting. Good movement. Vitals wnl, afebrile, satting 99% in RA General: WDWN, NAD, resting in bed comfortably Abdomen: soft, gravid, NTTP Extremities: no edema of BLE Cat I FHRT with bl 130, +accels, -decels, mod guanaco Kaser: uterine irritability but no reg ctx Assessment: Melissa is a 28yo with SIUP at approx 35wk with exacerbation of ongoing related back pain. Has not been taking tylenol, has not gone to physical therapy as referred. Vitals wnl, benign exam with no e/o labor. Reassuring status. Plan: -Safe for discharge home -Keep next OB appt on 21 November -Initially declined flexeril, but just before discharge requests Rx which I will place to [facility] -Encourage warm showers, adequate hydration MD Iris Wong Katrina D MD Nov 14, 2018 12:13
== END 2018-11-14 12:16 | disposition home or self-care (01) ==
LOC: M LDO 10:43
PROVIDERS: ATTEND Obstetrics & Gynecology
DX: O26.893 Other specified pregnancy related conditions, third trimester (principal); M54.9 Dorsalgia, unspecified; R06.02 Shortness of breath; Z3A.35 35 weeks gestation of pregnancy
CPT/HCPCS: 59025; G0378; G0463

== ENCOUNTER 2018-12-16 07:07 | Inpatient (IN) | payer OTHER ==
[~2018-12-16] VITALS: Ht 160 cm; Wt 85.8 kg
[2018-12-16] VITALS (8 sets, daily range): BP systolic 94–112; BP diastolic 50–68
[~2018-12-16 07:07] MED LIST changes: +MULTTAB20 PO
[2018-12-16] MEDS ORDERED: BICITRA 30ML SOLN UDC PO ONE ×2 (07:30→08:15)
[2018-12-16] MEDS ORDERED: AZITHROMYCIN INJ 500MG VIAL (J0456) As Ordered ONE (07:59)
[2018-12-16] MEDS ORDERED: ceFAZolin 2 GM/D5W 50 ML IV BAG (J0690 PER 500MG) As Ordered ONE (08:01)
[2018-12-16 08:09] LABS: HEMATOCRIT 37.1 % (36.0-47.0); HEMOGLOBIN 12.3 g/dl (12.0-15.5); MEAN CORPUSCULAR HEMOGLOBIN 29.7 pg (27.0-33.0); MEAN CORPUSCULAR HGB CONC 33.2 g/dl (32.0-36.5); MEAN CORPUSCULAR VOLUME 89.6 fl (80.0-96.0); PLATELET COUNT, AUTOMATED 159 10^3/uL (150-450); RED BLOOD COUNT 4.14 10^6/uL (4.00-5.40); WHITE BLOOD COUNT 7.4 10^3/uL (4.0-10.0)
[2018-12-16] MEDS ORDERED: OXYTOCIN INJ 10 UNITS/ML VIAL (J2590) As Ordered ONE (08:09)
[2018-12-16] MEDS ORDERED: MORPHINE PRES-FREE INJ 10 MG/10 ML VIAL (J2274) As Ordered ONE (08:11)
[2018-12-16] MEDS ORDERED: LACTATED RINGER'S 1000 ML IV ONE (08:15)
[2018-12-16] MEDS ORDERED: ACETAMINOPHEN 650 MG SUPP PR ONE (08:15)
[2018-12-16] MEDS ORDERED: AZITHROMYCIN INJ 500 MG, VIAL MATE ADAPTER 1 EACH in D5W 250 ML IV ONE (08:15)
[2018-12-16] MEDS ORDERED: LR 1,000 ML IV SCH ×2 (08:15→10:30)
[2018-12-16] MEDS ORDERED: BUPIVACAINE HCL 0.25% 10 ML VIAL SC ONE (08:15)
[2018-12-16] MEDS ORDERED: NALBUPHINE HCL 10 MG/ML AMP (J2300) IV PRN (08:55)
[2018-12-16] MEDS ORDERED: diphenhydrAMINE INJ 50MG/ML VIAL (J1200) IV PRN ×2 (08:55)
[2018-12-16] MEDS ORDERED: EPIDURAL COMMENT XX SCH (08:55)
[2018-12-16] MEDS ORDERED: FENTANYL/ROPIVACAINE/NACL BAG 100 ML EPIDURAL SCH (08:55)
[2018-12-16] MEDS ORDERED: METOCLOPRAMIDE INJ 10MG/2ML VIAL (J2765) IV PRN (08:55)
[2018-12-16] MEDS ORDERED: LACTATED RINGER'S 1000 ML IV PRN (08:55)
[2018-12-16] MEDS ORDERED: ePHEDrine SULFATE 25 MG/5 ML(5MG/ML) SYRINGE IV PRN (08:55)
[2018-12-16] MEDS ORDERED: ONDANSETRON 4MG/2ML VIAL (J2405) IV PRN ×2 (08:55)
[2018-12-16] MEDS ORDERED: REFRIGERATOR IV KEYS XX PRN (08:55)
[2018-12-16] MEDS ORDERED: EPIDURAL/PCA KEYS XX PRN (08:55)
[2018-12-16] MEDS ORDERED: NALOXONE INJ 0.4 MG/1 ML VIAL (J2310) IV PRN ×3 (08:55)
[2018-12-16] MEDS ORDERED: ONDANSETRON 4MG/2ML VIAL (J2405) As Ordered ONE ×2 (09:00→09:22)
[2018-12-16] MEDS ORDERED: dexameTHASONE 4 MG/ML 1ML VIAL (J1100) As Ordered ONE (09:22)
[2018-12-16] MEDS ORDERED: KETOROLAC 60 MG/2 ML VIAL (J1885) As Ordered ONE (09:22)
[2018-12-16] MEDS ORDERED: ePHEDrine SULFATE 25 MG/5 ML(5MG/ML) SYRINGE As Ordered ONE (09:34)
[2018-12-16] MEDS ORDERED: PHENYLephrine HCL 500 MCG/5 ML (100MCG/ML) SYRINGE (J2370) As Ordered ONE (09:44)
[2018-12-16 09:51] LABS: CORD GAS ABE A -6.9; CORD GAS ABE V -5.3; CORD GAS HCO3 A 22.6 MEQ/L; CORD GAS O2 SAT A 23.6 %; CORD GAS PCO2 A 64.8 mmHg; CORD GAS PCO2 V 57.6 mmHg; CORD GAS PH A 7.16 UNITS; CORD GAS PH V 7.22 UNITS; CORD GAS PO2 V 34.4 mmHg; CORD GAS SBC A 17.5 MEQ/L; CORD GAS SBC V 19.4 MEQ/L; CORD GAS TCO2 A 24.6 MEQ/L; CORD GAS TCO2 V 24.8 MEQ/L
[2018-12-16] MEDS ORDERED: fentaNYL 100 MCG/2 ML INJECTION (J3010) IV PRN (10:30)
[2018-12-16] MEDS ORDERED: oxyCODONE 5MG TAB PO PRN (10:30)
[2018-12-16] MEDS ORDERED: OXYTOCIN DRIP 30 UNITS in APPROPRIATE DILUENT 1 EA IV SCH (10:38)
[2018-12-16] MEDS ORDERED: OXYTOCIN INJ 10 UNITS/ML VIAL (J2590) IV ONE (10:45)
[2018-12-16] MEDS ORDERED: RHOGAM 300 MCG (1500 IU) INJ (J2790) IM SCH (10:45)
[2018-12-16] MEDS ORDERED: DOCUSATE SODIUM 100 MG CAP PO PRN (10:45)
[2018-12-16] MEDS ORDERED: PERCOCET 5MG/325MG TAB PO PRN (10:45)
[2018-12-16] MEDS ORDERED: MEASLES,MUMPS,RUBELLA VACCINE INJ (MMR-II) (90707) SC SCH (10:45)
[2018-12-16] MEDS ORDERED: ACETAMINOPHEN 500 MG TAB PO PRN (10:45)
[2018-12-16] MEDS ORDERED: MOM 30ML SUSPENSION UDC PO PRN (10:45)
[2018-12-16] MEDS ORDERED: ANUSOL HC CREAM 30GM TOP PRN (10:45)
[2018-12-16] MEDS ORDERED: OXYTOCIN 30 UNITS IN 0.9% NaCl 500ML IV BAG (J2590) As Ordered ONE (10:48)
[2018-12-16] MEDS: KETOROLAC 30 MG/ML VIAL (J1885) IV SCH ×2 (16:00→22:00)
[2018-12-17 02:00] VITALS: BP 107/55
[2018-12-17] MEDS: KETOROLAC 30 MG/ML VIAL (J1885) IV SCH (03:33)
[2018-12-17] MEDS: PERCOCET 5MG/325MG TAB PO PRN ×2 (04:53→10:46)
[2018-12-17 05:33] VITALS: BP 92/55
--- NOTE | 2018-12-17 07:04 | IPN ---
DATE: 12/16/2018 This lady has requested circumcision of their male . After discussing risks and benefits of circumcision medical nonmedical indications, penile block and aftercare expressed understanding penile block aftercare. All questions were answered. 20-minute discussion, signed the consent form await clearance by the outpatient case manager, Dr. Hayes.
[2018-12-17 07:23] LABS: HEMATOCRIT 34.4 % (36.0-47.0); HEMOGLOBIN 11.6 g/dl (12.0-15.5); MEAN CORPUSCULAR HEMOGLOBIN 30.2 pg (27.0-33.0); MEAN CORPUSCULAR HGB CONC 33.7 g/dl (32.0-36.5); MEAN CORPUSCULAR VOLUME 89.6 fl (80.0-96.0); PLATELET COUNT, AUTOMATED 167 10^3/uL (150-450); RED BLOOD COUNT 3.84 10^6/uL (4.00-5.40)
[2018-12-17] MEDS: PRENATAL VITAMINS CHEWABLE TABLET PO SCH (08:25)
--- NOTE | 2018-12-17 09:05 | IPN ---
DATE: 12/17/2018 day #1 and postoperative day #1. This lady is a 28-year-old, 3, now para 2, who had a repeat section of a live male infant, 7 pounds 14 ounces or 3580 grams. On her first day, we discussed phlebitis, cystitis, mastitis, endometritis and cellulitis; diet, exercise and pain management; perineal, breast and wound care. Her blood pressure today is 92/55, respirations 18, pulse 94, temperature 98.4. Her admitting hemoglobin was 12.3, hematocrit 37.1 and platelets 159. Her /postoperative day #1 hemoglobin 11.6, hematocrit 34.5 and platelets 167. Breast examination unremarkable. Normocephalic, atraumatic. Neck full range of motion. Pupils equal and reactive to light. Distal pulses symmetric. No evidence of deep vein thrombosis (DVT), pulmonary embolism (PE) or superficial phlebitis. Chest is clear bilaterally at bases. No wheezes or rhonchi. Abdomen soft, uterus two below. Lochia is moderate. Four quadrant bowel sounds. Incision is clean and dry. She has no rashes, lesions or pruritus. No arthralgia or myalgia. No complaint of joint pain. No complaint of cough, wheeze, shortness of breath or dyspnea on exertion. No nausea, vomiting, diarrhea or constipation. No urgency or frequency. In summary, we have a term gestation with repeat section of a live healthy male. Plans are discharge tomorrow with medication dispensed.
[2018-12-17 10:00] VITALS: BP 108/60
[2018-12-17 14:00] VITALS: BP 103/55
[2018-12-17] MEDS: IBUPROFEN 800 MG TAB PO PRN (16:02)
[2018-12-17 18:00] VITALS: BP 108/57
[2018-12-17 22:00] VITALS: BP 112/59
[2018-12-18] MEDS: IBUPROFEN 800 MG TAB PO PRN ×2 (00:20→08:06)
[2018-12-18 02:00] VITALS: BP 106/64
[2018-12-18 05:56] VITALS: BP 98/62
[2018-12-18] MEDS: PRENATAL VITAMINS CHEWABLE TABLET PO SCH (07:55)
[2018-12-18] MEDS ORDERED: IBUP80TA PO (08:18)
[2018-12-18] MEDS ORDERED: PROC1CRE5 TOP (08:18)
[2018-12-18] MEDS ORDERED: PERCOCET PO (08:18)
[2018-12-18] MEDS ORDERED: COLA100C5 PO (08:18)
--- NOTE | 2018-12-19 21:23 | DSES ---
DATE OF ADMISSION: 12/16/2018 DATE OF DISCHARGE: 12/18/2018 28-year-old 3 now para 2 admitted for elective repeat section, live male infant, 7 pounds 14 ounces, 3580 grams, scores of 9 and 9 at 1 and 5 minutes respectively. Arterial pH 7.16, base excess -6.9, venous pH 7.22, base excess -5.3. On her second day we discussed phlebitis, cystitis, mastitis, endometritis, cellulitis, diet, exercise, pain management, perineal, breast and wound care. Her admitting hemoglobin was 12.3, hematocrit 37.1 and platelets 159. Discharge hemoglobin 11.6, hematocrit 34.4 and platelets were 167. Her vital signs on discharge: Blood pressure is 98/62, respirations 17, pulse 89, temperature 97.5. The rest of the examination is unremarkable. Normocephalic, atraumatic. Neck full range of motion. Pupils equal and reactive to light. Distal pulses are symmetric. No evidence of DVT, PE or superficial phlebitis. Chest is clear bilaterally to bases. No wheezes or rhonchi. No CVA tenderness. Abdomen soft. Uterus two below. Lochia is moderate. Four quadrant bowel sounds are noted. Incision is clean and dry. She has no rashes, lesions or pruritus. No arthralgia, myalgia. No complaint of joint pain. No complaint of cough, wheezes, shortness of breath or dyspnea on exertion. No nausea, vomiting, diarrhea or constipation. No urgency or frequency. The patient was given her medications for discharge. Followup in 2 weeks for incision check, 6-week check. All questions were answered. 20-minute discussion on discharge. The patient expressed understanding and will make her appointments.
--- NOTE | 2018-12-20 13:51 | RO ---
DATE OF PROCEDURE: 12/16/2018 This lady is a 28-year-old 2, para 1 admitted for elective repeat section at 39 and 3 weeks of gestation. PREOPERATIVE DIAGNOSIS: Cephalopelvic disproportion, repeat section. POSTOPERATIVE DIAGNOSIS: Cephalopelvic disproportion, repeat section. SURGEON: Filiberto Hayes MD ACCOUNTS PAYABLE LEAD: Dr. Cagle for extraction, retraction and visualization. ANESTHESIA: Spinal plus local anesthetic for intraperitoneal procedures. ESTIMATED BLOOD LOSS: 500 mL. DESCRIPTION OF PROCEDURE: After adequate time out, acetaminophen suppository 1300 mg per rectum, sequentials in place and appropriate antibiotic therapy, a low transverse incision was made through the previous one, passing through abdominal layers securing hemostasis. We noticed that there was a lot of scarring and adhesion tensioned tissue. Upon entering into the peritoneal cavity we noticed the bladder was well up anteriorly, was deflected down. There was a little bit of a thinness in the lower uterine segment. A low transverse into the uterus was made in ARM draining clear liqua. The baby's head was really floating and required stabilization with Bryant-Daisha forceps, delivered a live male infant weighing 7 pounds 14 ounces, 3580 grams scores of nine and nine at 1 and 5 minutes, respectfully. Arterial pH 7.16, base excess -6.9, venous pH 7.22, base excess -5.3. The placenta was manually removed. Three-vessels in the cord. Membranes and tissues intact. Sweeping out the uterine contents no evidence of debris tissue or membranes. The uterus contracted well down on Pitocin. The lower segment was oversewn in the usual fashion in two layers and reperitonealization was performed. With instrument and pad count correct, we reviewed the incisional sites which were clean and dry. On the right side there was a lot of clot area. We reviewed that area 2, 3 or 4 times, did not see any bleeding in the right lower quadrant or posterior to the uterus or the broad ligament. Ovary and tube appeared to be normal on the right side. Appendix kept popping up but appeared to be normal. Left ovary and tube were normal. With the uterus well contracted and no evidence of active bleeding, the abdomen was closed, running stitch for the peritoneum, same for the fascia, interrupted for subcu, Dexon to the skin. Marcaine 0.25% 10 mL to the incisional site, spray and Telfa and the patient was taken back to recovery in good condition.
== END 2018-12-18 13:50 | disposition home or self-care (01) | DRG 773 ==
LOC: M LDI 07:07 → M OBS 11:40
PROVIDERS: ADMIT Obstetrics & Gynecology; ATTEND Obstetrics & Gynecology
PROC: 10D00Z1 Extraction of Products of Conception, Low, Open Approach (ICD-10-PCS; principal; 2018-12-16 08:30)
DX: O34.211 Maternal care for low transverse scar from previous cesarean delivery (principal); Z3A.39 39 weeks gestation of pregnancy; Z37.0 Single live birth; O65.8 Obstructed labor due to other maternal pelvic abnormalities